=== PATIENT | male | born 1975 | race African-American/Black ===

== ENCOUNTER 2019-02-21 03:17 | Emergency (ER) | payer SELFPAY ==
[~2019-02-21] VITALS: Ht 177.8 cm; Wt 94.8 kg
[2019-02-21] MEDS ORDERED: ONDANSETRON HCL/PF 4 MG/2 ML VIAL IV ONE (03:30)
[2019-02-21] MEDS ORDERED: MORPHINE SULFATE INJ 2 MG/ML DISP.SYRIN IV ONE ×2 (03:30→05:00)
[2019-02-21] MEDS ORDERED: methylPREDNISolone SOD SUCC 40 MG/ML VIAL IV ONE ×2 (03:30→05:00)
[2019-02-21] MEDS ORDERED: KETOROLAC TROMETHAMINE INJ 30 MG/ML VIAL IV ONE (03:30)
--- NOTE | 2019-02-21 03:30 | NUR ---
PT BIBSELF C/O LOWER BACK PAIN RADIATING DOWN R LEG. PT DENIES RECENT TRAUMA OR DYSURIA. PT AAOX4. APPEARS UNCOMFORTABLE, HEATING PACK APPLIED TO LOWER BACK. RESPIRATIONS EVEN AND UNLABORED. ABLE TO AMBULATE WITH STEADY GAIT. NO ACUTE DISTRESS NOTED AT THIS TIME. WILL CONTINUE TO MONITOR
[2019-02-21] MEDS ORDERED: MORPHINE SULFATE INJ 4 MG/ML DISP.SYRIN ONE ×2 (03:33→04:46)
[2019-02-21] MEDS ORDERED: ONDANSETRON HCL/PF 4 MG/2 ML VIAL ONE (03:33)
[2019-02-21] MEDS ORDERED: methylPREDNISolone SOD SUCC 40 MG/ML VIAL ONE (03:33)
[2019-02-21] MEDS ORDERED: KETOROLAC TROMETHAMINE INJ 30 MG/ML VIAL ONE (03:33)
--- NOTE | 2019-02-21 03:45 | NUR ---
PER VERBAL MD ORDER, HOLD SOLU MEDROL IV 40MG
--- NOTE | 2019-02-21 03:49 | NUR ---
PT UNABLE TO RPOVIDE URINE SAMPLE AT THIS TIME. MD HANNA
--- NOTE | 2019-02-21 04:25 | NUR ---
URINE COLLECTED AND SENT TO LAB
[2019-02-21 04:31] LABS: APPEARANCE,URINE Clear (CLEAR); BILIRUBIN,URINE Negative (NEGATIVE); BLOOD, URINE Negative Ery/uL (NEGATIVE); COLOR,URINE Yellow (YELLOW); KETONES,URINE Negative (NEGATIVE); LEUKOCYTE ESTERASE ,URINE Negative (NEGATIVE); NITRITE, URINE Negative (NEGATIVE); PROTEIN,URINE Trace mg/dl (NEGATIVE); UGLUCOSE Negative (NEGATIVE); UROBILINOGEN,URINE 0.2 EU/dL (0.2)
[2019-02-21 04:34] LABS: PH,URINE >9.0 (5.0-8.0)
[2019-02-21 05:19] LABS: BACTERIA,URINE None seen /HPF (None Seen); RBC,URINE 0-2 /HPF (0-2); SQUAMOUS EPITHELIAL CELL,UR Few /HPF (None Seen); WBC,URINE 0-2 /HPF (0-3)
--- NOTE | 2019-02-21 05:43 | NUR ---
Patient discharged to home in stable condition. Written and verbal after care instructions given. Patient verbalizes understanding of instruction.IV removed. Catheter intact and site benign. Pressure and 4x4 applied to site. No bleeding noted. Pt ambulatory with a steady gait. Pt instructed not to drive, pt verbalized understanding
[2019-02-21 05:44] VITALS: BP 116/79
== END 2019-02-21 05:44 | disposition home or self-care (01) ==
LOC: ER 03:20
DX: M54.41 Lumbago with sciatica, right side (principal); Z88.8 Allergy status to other drugs, medicaments and biological substances
CPT/HCPCS: 81001; 96374; 96375; 96376; 99283; J1885; J2270 ×2; J2405; J2920; 81000-TC

== ENCOUNTER 2019-06-23 06:05 | Emergency (ER) | payer BC ==
[~2019-06-23] VITALS: Ht 177.8 cm; Wt 90.7 kg
[2019-06-23 06:15] VITALS: BP 138/98
--- NOTE | 2019-06-23 06:20 | NUR ---
PT CAME TO THE ED C/O LOW BACK PAIN RADIATING TO R LEG X2 DAYS. 02/10 PS. PT AAOX4, RR EVEN AND UNLABORED ON RA W/ AND NOTED. PT CONNECTED TO THE MONITOR AND POX
[2019-06-23] MEDS ORDERED: KETOROLAC TROMETHAMINE INJ 30 MG/ML VIAL IV ONE (06:30)
[2019-06-23] MEDS ORDERED: MORPHINE SULFATE INJ 2 MG/ML DISP.SYRIN IV ONE (06:30)
[2019-06-23] MEDS ORDERED: methylPREDNISolone SOD SUCC 40 MG/ML VIAL IV ONE (06:30)
[2019-06-23] MEDS ORDERED: ONDANSETRON HCL/PF - ER 4 MG/2 ML VIAL IV ONE (06:30)
[2019-06-23] MEDS ORDERED: KETOROLAC TROMETHAMINE INJ 30 MG/ML VIAL ONE (06:35)
[2019-06-23] MEDS ORDERED: methylPREDNISolone SOD SUCC 40 MG/ML VIAL ONE (06:35)
[2019-06-23] MEDS ORDERED: ONDANSETRON HCL/PF 4 MG/2 ML VIAL ONE (06:35)
[2019-06-23] MEDS ORDERED: MORPHINE SULFATE INJ 4 MG/ML DISP.SYRIN ONE (06:35)
== END 2019-06-23 07:11 | disposition home or self-care (01) ==
LOC: ER 06:07
DX: M54.5 Low back pain (principal); Z88.8 Allergy status to other drugs, medicaments and biological substances
CPT/HCPCS: 96374; 96375; 99284; J1885; J2270; J2405 ×2; J2920

== ENCOUNTER 2019-07-20 04:15 | Emergency (ER) | payer BC ==
[~2019-07-20] VITALS: Ht 177.8 cm; Wt 90.7 kg
--- NOTE | 2019-07-20 04:35 | NUR ---
PT AAOX4. BIBS. C/O SIATIC PAIN FROM RIGHT BUTTUCK TO FOOT. PT STATED HE IS ON PREDNISONE FOR 7 DAYS. NO ACUTE DISTRESS NOTED. VSS. AWAITING MD FOR EVAL.
[2019-07-20] MEDS ORDERED: KETOROLAC TROMETHAMINE INJ 60 MG/2 ML VIAL IM ONE ×2 (04:54→05:00)
--- NOTE | 2019-07-20 04:55 | NUR ---
PAIN MEDS GIVEN. PT IN BED.
[2019-07-20] MEDS ORDERED: HYDROMORPHONE 1 MG/1 ML DISP.SYRIN ONE ×2 (05:47→06:55)
--- NOTE | 2019-07-20 05:49 | NUR ---
Patient is resting comfortably in bed. Easily aroused. VSS.
[2019-07-20] MEDS ORDERED: HYDROMORPHONE INJ 0.5 MG/0.5 ML SYRINGE IM ONE (06:00)
--- NOTE | 2019-07-20 06:58 | NUR ---
PT STATED PAIN IS 7/10. GIVEN 1MG DILAUDID PER MD.
[2019-07-20] MEDS ORDERED: HYDROMORPHONE 1 MG/1 ML DISP.SYRIN IM ONE (07:00)
--- NOTE | 2019-07-20 07:29 | NUR ---
ENDORSEMENT RECEIVED FROM JEVON LÓPEZ FOR GIANFRANCO
[2019-07-20 08:07] VITALS: BP 127/68
--- NOTE | 2019-07-20 08:07 | NUR ---
Patient discharged to home in stable condition. Written and verbal after care instructions given. Patient verbalizes understanding of instruction. Instructed not to drive.
== END 2019-07-20 08:07 | disposition home or self-care (01) ==
LOC: ER 04:16
DX: M54.41 Lumbago with sciatica, right side (principal); Z88.8 Allergy status to other drugs, medicaments and biological substances
CPT/HCPCS: 96372 ×3; 99284; J1170 ×2; J1885

== ENCOUNTER 2022-02-13 20:33 | Emergency (ER) | payer BC ==
[~2022-02-13] VITALS: Ht 177.8 cm; Wt 93.0 kg
--- NOTE | 2022-02-13 21:20 | NUR ---
BIBFAMILY C/O HEADACHE FOR THE PAST 3 DAYS TESTED COVID (+) ON THURSDAY. PATIENT IS AAOX4. AMBULATORY. ABLE TO MAKE NEEDS KNOWN. PLACED IN ROOM 5. VITALS CHECKED.
[2022-02-13] MEDS ORDERED: SUMATRIPTAN SUCCINATE 6 MG/0.5 ML VIAL SQ ONE ×2 (21:30→21:36)
[2022-02-13] MEDS ORDERED: METOCLOPRAMIDE HCL 10 MG/2 ML VIAL IV ONE (21:30)
[2022-02-13] MEDS ORDERED: IV NS 0.9% 1,000 ML BAG IV ONE (21:30)
[2022-02-13] MEDS ORDERED: METOCLOPRAMIDE HCL 10 MG/2 ML VIAL ONE (21:36)
--- NOTE | 2022-02-13 21:43 | NUR ---
PT BROUGHT TO CT DEPT
[2022-02-13] MEDS ORDERED: MORPHINE SULFATE INJ 2 MG/ML DISP.SYRIN ONE (21:49)
[2022-02-13] MEDS ORDERED: MORPHINE SULFATE INJ 2 MG/ML DISP.SYRIN IV ONE (22:00)
--- NOTE | 2022-02-13 22:02 | NUR ---
IV CANNULA G18 INSERTED ON RIGHT AC.
--- NOTE | 2022-02-13 22:11 | NUR ---
DR BOWSER AWARE ABOUT PT/ FAMILY CONCERN THAT SOMETIMES PATIENT FELT ITCHINESS AFTER RECEIVING MORPHINE SHOTS. DR BOWSER SAID TO WAIT IF HE HAS THAT SYMPTOMS AND SHE WILL PRESCRIBE MEDICINE. PT/FAMILY AWARE
--- NOTE | 2022-02-13 22:49 | NUR ---
SISTER LINDSEY - [phone]. UPDATES GIVEN TO SISTER
--- NOTE | 2022-02-13 23:09 | NUR ---
Patient discharged to home in stable condition. Written and verbal after care instructions given. Patient verbalizes understanding of instruction.
--- NOTE | 2022-02-13 23:09 | NUR ---
IV CANNULA REMOVED
[2022-02-13 23:10] VITALS: BP 134/78
== END 2022-02-13 23:10 | disposition home or self-care (01) ==
LOC: ER 21:00
DX: G43.909 Migraine, unspecified, not intractable, without status migrainosus (principal); Z86.16 Personal history of COVID-19; Z88.8 Allergy status to other drugs, medicaments and biological substances; Z60.2 Problems related to living alone
CPT/HCPCS: 99284; 96374; 70450; 96361; 96375; 96372; J3030; J2765; J7030; J2270